=== PATIENT | female | born 1955 | race Caucasian/White ===

== ENCOUNTER 2018-03-11 11:56 | Outpatient (REF) | payer MEDICARE, MEDICAID, SELFPAY ==
[2018-03-11 21:18] LABS: Anion Gap 10.3 mmol/L (3-11); BUN 22 mg/dL (7-18); CO2 26.7 mmol/L (21.0-32.0); CREATININE 0.99 mg/dL (0.55-1.02); Calcium 9.2 mg/dL (8.5-10.1); Chloride 100 mmol/L (98-107); Estimated GFR 57.02 (mL/min/1.73m2); Glucose 161 mg/dL (70-100); Potassium 3.9 mmol/L (3.5-5.1); Sodium 137 mmol/L (136-145); TSH 1.63 uIU/mL (0.358-3.74)
== END 2018-03-11 12:16 ==
LOC: NCHCN 11:56
PROVIDERS: PCP Nurse Practitioner Family; Visit Provider Nurse Practitioner Family
DX: E11.9 Type 2 diabetes mellitus without complications (principal); I10 Essential (primary) hypertension; E06.3 Autoimmune thyroiditis
CPT/HCPCS: 80048; 84443

== ENCOUNTER 2018-06-17 13:47 | Outpatient (REF) | payer MEDICARE, MEDICAID, SELFPAY ==
[2018-06-17 21:32] LABS: HCT 38.1 % (36.0-46.0); Mean Corp. HGB Concentration 31.5 g/dL (32.0-36.0); Mean Corpuscular Hemoglobin 28.7 pg (27.0-33.0); Mean Corpuscular Volume 91.1 fL (80-95); Platelet Count 138 x1000/uL (130-400); RBC 4.18 m/cumm (4.00-5.20); RBC Distribution Width 15.4 % (11.7-14.6); White Blood Cell Count 8.46 k/cumm (4.4-10.8)
[2018-06-17 22:22] LABS: Magnesium 1.8 mg/dL (1.8-2.4)
[2018-06-17 23:17] LABS: Ferritin 60 ng/mL (8-388); Vitamin B12 329 pg/mL (193-986)
== END 2018-06-17 14:07 ==
LOC: NCHCN 13:47
PROVIDERS: PCP Nurse Practitioner Family; Visit Provider Nurse Practitioner Family
DX: G25.81 Restless legs syndrome (principal); R53.83 Other fatigue; R71.8 Other abnormality of red blood cells; Z79.899 Other long term (current) drug therapy
CPT/HCPCS: 85027; 82607; 82728; 83735

== ENCOUNTER 2018-09-21 23:04 | Outpatient (REF) | payer MEDICARE, MEDICAID, SELFPAY ==
[2018-09-21 23:02] LABS: COMMENT (LAB VIEW ONLY) 18.46 mg/dL; Microalb ug/mg Crea 23.3 ug/mg Cr
== END 2018-09-21 23:24 ==
LOC: NCHCN 23:04
PROVIDERS: PCP Nurse Practitioner Family; Visit Provider Nurse Practitioner Family
DX: G89.4 Chronic pain syndrome (principal)
CPT/HCPCS: 82043; 82570

== ENCOUNTER 2019-03-10 10:55 | Outpatient (REF) | payer MEDICARE, MEDICAID, SELFPAY ==
[2019-03-10 23:01] LABS: Anion Gap 13.6 mmol/L (3-11); BUN 25 mg/dL (7-18); CO2 26.4 mmol/L (21.0-32.0); Calcium 9.1 mg/dL (8.5-10.1); Chloride 100 mmol/L (98-107); Estimated GFR 45.52 (mL/min/1.73m2); Glucose 100 mg/dL (74-106); Sodium 140 mmol/L (136-145); Vitamin B12 322 pg/mL (193-986)
== END 2019-03-10 11:15 ==
LOC: NCHCN 10:55
PROVIDERS: PCP Nurse Practitioner Family; Visit Provider Nurse Practitioner Family
DX: E11.9 Type 2 diabetes mellitus without complications (principal); F32.9 Major depressive disorder, single episode, unspecified; I10 Essential (primary) hypertension; G89.4 Chronic pain syndrome; Z51.81 Encounter for therapeutic drug level monitoring
CPT/HCPCS: 80048; 82607; 84443

== ENCOUNTER 2019-08-17 14:42 | Outpatient (REF) | payer MEDICARE, MEDICAID, SELFPAY ==
[2019-08-17 21:26] LABS: BUN 19 mg/dL (7-18); CREATININE 1.37 mg/dL (0.55-1.02); Calcium 9.2 mg/dL (8.5-10.1); Chloride 101 mmol/L (98-107); Estimated GFR 39.07 (mL/min/1.73m2); Glucose 84 mg/dL (74-106); Potassium 4.7 mmol/L (3.5-5.1); Sodium 138 mmol/L (136-145)
== END 2019-08-17 15:02 ==
LOC: NCHCN 14:42
PROVIDERS: PCP Nurse Practitioner Family; Visit Provider Nurse Practitioner Community Health
DX: E11.621 Type 2 diabetes mellitus with foot ulcer (principal)
CPT/HCPCS: 80048

== ENCOUNTER 2019-08-25 12:01 | Outpatient (REF) | payer MEDICARE, MEDICAID, SELFPAY ==
[2019-08-25 20:55] LABS: Anion Gap 9.9 mmol/L (3-11); BUN 19 mg/dL (7-18); CO2 28.1 mmol/L (21.0-32.0); CREATININE 1.23 mg/dL (0.55-1.02); Calcium 9.1 mg/dL (8.5-10.1); Chloride 98 mmol/L (98-107); Estimated GFR 44.24 (mL/min/1.73m2); Glucose 84 mg/dL (74-106); Sodium 136 mmol/L (136-145)
== END 2019-08-25 12:21 ==
LOC: NCHCN 12:01
PROVIDERS: PCP Nurse Practitioner Family; Visit Provider Nurse Practitioner Community Health
DX: E11.9 Type 2 diabetes mellitus without complications (principal)
CPT/HCPCS: 80048

== ENCOUNTER 2020-04-17 17:02 | Outpatient (REF) | payer OTHER, MEDICAID, SELFPAY ==
[2020-04-17 21:13] LABS: Microalb ug/mg Crea 7.5 ug/mg Cr
[2020-04-17 21:15] LABS: BUN 34 mg/dL (7-18); CREATININE 1.2 mg/dL (0.55-1.02); Calcium 9.1 mg/dL (8.5-10.1); Chloride 101 mmol/L (98-107); Estimated GFR 45.37 (mL/min/1.73m2); Glucose 106 mg/dL (74-106); Potassium 3.9 mmol/L (3.5-5.1); Sodium 138 mmol/L (136-145); TSH 4.43 uIU/mL (0.36-3.74)
== END 2020-04-17 17:03 | disposition home or self-care (01) ==
LOC: NCHCN 17:02
PROVIDERS: PCP Nurse Practitioner Family; Visit Provider Nurse Practitioner Family
DX: E11.9 Type 2 diabetes mellitus without complications (principal); E06.3 Autoimmune thyroiditis; I10 Essential (primary) hypertension
CPT/HCPCS: 80048; 82043; 82570; 84443

== ENCOUNTER 2020-07-30 13:35 | Outpatient (REF) | payer MEDICARE, MEDICAID, SELFPAY ==
[2020-07-30 14:25] LABS: TSH 0.89 uIU/mL (0.36-3.74)
== END 2020-07-30 13:36 | disposition home or self-care (01) ==
LOC: NCHCN 13:35
PROVIDERS: PCP Nurse Practitioner Family; Visit Provider Nurse Practitioner Family
DX: E06.3 Autoimmune thyroiditis (principal)
CPT/HCPCS: 84443

== ENCOUNTER 2020-11-14 12:53 | Outpatient (REF) | payer MEDICARE, MEDICAID, SELFPAY ==
[2020-11-14 22:30] LABS: ALT 33 U/L (14-59); AST 16 U/L (15-37); Albumin 3.5 g/dL (3.4-5.0); Alkaline Phosphatase 86 U/L (46-116); Anion Gap 10.4 mmol/L (3-11); BUN 24 mg/dL (7-18); Bilirubin, Total 0.7 mg/dL (0.2-1.0); CO2 27.6 mmol/L (21.0-32.0); CREATININE 1.2 mg/dL (0.55-1.02); Chloride 103 mmol/L (98-107); Estimated GFR 45.37 (mL/min/1.73m2); Glucose 77 mg/dL (74-106); Potassium 4.3 mmol/L (3.5-5.1); Sodium 141 mmol/L (136-145); TSH 4.42 uIU/mL (0.36-3.74); Total Protein 7.6 g/dL (6.4-8.2)
== END 2020-11-14 12:54 | disposition home or self-care (01) ==
LOC: NCHCN 12:53
PROVIDERS: PCP Nurse Practitioner Family; Visit Provider Nurse Practitioner Community Health
DX: E06.3 Autoimmune thyroiditis (principal); E11.9 Type 2 diabetes mellitus without complications; E78.5 Hyperlipidemia, unspecified; E66.01 Morbid (severe) obesity due to excess calories
CPT/HCPCS: 80053; 84443

== ENCOUNTER 2021-02-12 16:50 | Outpatient (REF) | payer MEDICARE, MEDICAID, SELFPAY ==
[2021-02-12 23:01] LABS: Microalb ug/mg Crea 27.2 ug/mg Cr
[2021-02-12 23:28] LABS: Anion Gap 12.4 mmol/L (3-11); BUN 21 mg/dL (7-18); CO2 25.6 mmol/L (21.0-32.0); CREATININE 1.2 mg/dL (0.55-1.02); Calcium 9.3 mg/dL (8.5-10.1); Chloride 100 mmol/L (98-107); Estimated GFR 45.23 (mL/min/1.73m2); Glucose 113 mg/dL (74-106); Potassium 4.5 mmol/L (3.5-5.1); Sodium 138 mmol/L (136-145); TSH 1.59 uIU/mL (0.36-3.74); Vitamin B12 251 pg/mL (193-986)
== END 2021-02-12 16:51 | disposition home or self-care (01) ==
LOC: NCHCN 16:50
PROVIDERS: PCP Nurse Practitioner Family; Visit Provider Nurse Practitioner Family
DX: E11.9 Type 2 diabetes mellitus without complications (principal); I10 Essential (primary) hypertension; E06.3 Autoimmune thyroiditis; Z51.81 Encounter for therapeutic drug level monitoring
CPT/HCPCS: 80048; 82043; 82570; 82607; 84443

== ENCOUNTER 2022-03-18 11:21 | Outpatient (REF) | payer MEDICARE, MEDICAID, SELFPAY ==
[2022-03-18 14:38] LABS: HCT 34.8 % (36.0-46.0); MCH 26.5 pg (27.0-33.0); MCHC 31.6 % (32.0-36.0); MCV 84 fL (80-95); MPV 11.6 fL (8.0-11.0); Platelet Count 148 10^3/uL (130-400); RBC 4.15 10^6/uL (3.93-5.22); RDW 14.6 % (11.7-14.6); RDW-SD 44.7 fL; WBC 8.41 10^3/uL (4.4-10.8)
[2022-03-18 15:00] LABS: Hemoglobin A1C 6.4 % (<5.7)
[2022-03-18 15:36] LABS: BUN 34 mg/dL (7-18); CREATININE 1.1 mg/dL (0.55-1.02); Calcium 9.5 mg/dL (8.5-10.1); Chloride 100 mmol/L (98-107); Estimated GFR 55.76 (mL/min/1.73m2); Glucose 151 mg/dL (74-106); Potassium 3.8 mmol/L (3.5-5.1); Sodium 135 mmol/L (136-145); TSH 2.55 uIU/mL (0.36-3.74); Vitamin B12 1397 pg/mL (193-986)
== END 2022-03-18 11:22 | disposition home or self-care (01) ==
LOC: NCHCN 11:21
PROVIDERS: PCP Nurse Practitioner Family; Visit Provider Nurse Practitioner Family
DX: E11.9 Type 2 diabetes mellitus without complications (principal); I10 Essential (primary) hypertension; E03.9 Hypothyroidism, unspecified; E53.8 Deficiency of other specified B group vitamins
CPT/HCPCS: 80048; 85027; 82607; 83036; 84443

== ENCOUNTER 2022-11-11 11:49 | Outpatient (REF) | payer MEDICARE, MEDICAID, SELFPAY ==
[2022-11-11 16:30] LABS: Abs Immature Grans 0.04 10^3/uL (0.0-0.06); Absolute Basophil Count 0.05 10^3/uL (0.0-0.2); Absolute Eosinophil Count 0.26 10^3/uL (0.0-0.7); Absolute Lymphocyte Count 1.58 10^3/uL (1.2-3.4); Absolute Monocyte Count 0.74 10^3/uL (0.1-0.8); Absolute Neutrophil Count 7.01 10^3/uL (1.2-6.7); Basophils % 0.5; Eosinophils % 2.7; HCT 34.4 % (36.0-46.0); HGB 10.7 g/dL (11.2-15.7); Immature Grans % 0.4; Lymphocytes % 16.3; MCH 26.4 pg (27.0-33.0); MCHC 31.1 % (32.0-36.0); MCV 85 fL (80-95); MPV 11.1 fL (8.0-11.0); Monocytes % 7.6; Neutrophils % 72.5; Platelet Count 215 10^3/uL (130-400); RBC 4.06 10^6/uL (3.93-5.22); RDW 14.6 % (11.7-14.6); WBC 9.68 10^3/uL (4.4-10.8)
[2022-11-11 17:04] LABS: Iron 42 ug/dL (50-170); Total Iron Binding Capacity 374 ug/dL (250-450); Transferrin Sat 11 % (15-50)
[2022-11-11 17:33] LABS: ALT 50 U/L (14-59); AST 33 U/L (15-37); Albumin 3.3 g/dL (3.4-5.0); Alkaline Phosphatase 106 U/L (46-116); Anion Gap 10.3 mmol/L (3-11); BUN 19 mg/dL (7-18); Bilirubin, Total 0.5 mg/dL (0.2-1.0); CO2 26.7 mmol/L (21.0-32.0); CREATININE 1.1 mg/dL (0.55-1.02); Calcium 9.2 mg/dL (8.5-10.1); Chloride 103 mmol/L (98-107); Estimated GFR 55.76 (mL/min/1.73m2); Ferritin 78 ng/mL (8-252); Folate 9.6 ng/mL (8.6-20.0); Glucose 177 mg/dL (74-106); Potassium 4.3 mmol/L (3.5-5.1); Sodium 140 mmol/L (136-145); TSH (W/Ref FT4) 1.29 uIU/mL (0.36-3.74); Total Protein 7.9 g/dL (6.4-8.2); Vitamin B12 1787 pg/mL (193-986)
== END 2022-11-11 11:50 | disposition home or self-care (01) ==
LOC: NCHCN 11:49
PROVIDERS: PCP Nurse Practitioner Family; Visit Provider Nurse Practitioner Family
DX: E03.9 Hypothyroidism, unspecified (principal); E11.9 Type 2 diabetes mellitus without complications; D64.9 Anemia, unspecified; R74.8 Abnormal levels of other serum enzymes; Z86.39 Personal history of other endocrine, nutritional and metabolic disease
CPT/HCPCS: 80053; 82607; 82728; 82746; 83540; 83550; 84443; 85025

== ENCOUNTER 2023-07-13 19:36 | Outpatient (REF) | payer MEDICARE, MEDICAID, SELFPAY ==
[2023-07-13 21:39] LABS: HCT 37.6 % (36.0-46.0); HGB 11.8 g/dL (11.2-15.7); MCH 26.9 pg (27.0-33.0); MCHC 31.4 % (32.0-36.0); MCV 86 fL (80-95); Platelet Count 274 10^3/uL (130-400); RBC 4.38 10^6/uL (3.93-5.22); RDW 14.4 % (11.7-14.6); RDW-SD 45.4 fL; WBC 9.88 10^3/uL (4.4-10.8)
[2023-07-13 21:57] LABS: COMMENT (LAB VIEW ONLY) 78.37 mg/dL; Microalb ug/mg Crea 9.1 ug/mg Cr
[2023-07-13 22:00] LABS: Iron 52 ug/dL (50-170); Total Iron Binding Capacity 397 ug/dL (250-450); Transferrin Sat 13 % (15-50)
[2023-07-13 22:14] LABS: ALT 40 U/L (14-59); AST 31 U/L (15-37); Albumin 3.5 g/dL (3.4-5.0); Alkaline Phosphatase 151 U/L (46-116); Anion Gap 10.1 mmol/L (3-11); BUN 29 mg/dL (7-18); Bilirubin, Total 0.7 mg/dL (0.2-1.0); CO2 28.9 mmol/L (21.0-32.0); CREATININE 1.4 mg/dL (0.55-1.02); Calcium 10.2 mg/dL (8.5-10.1); Calculated LDL 42 mg/dL (<100); Chloride 99 mmol/L (98-107); Cholesterol 126 mg/dL (<200); Estimated GFR 41.49 (mL/min/1.73m2); Glucose 107 mg/dL (74-106); HDL Cholesterol 53 mg/dL (40-60); Potassium 4.7 mmol/L (3.5-5.1); Sodium 138 mmol/L (136-145); TSH 1.62 uIU/Ml (0.36-3.74); Total Protein 8.3 g/dL (6.4-8.2); Triglyceride 157 mg/dL (<150)
[2023-07-13 22:15] LABS: Vitamin B12 > 2000 pg/mL (193-986)
[2023-07-13 22:19] LABS: Vitamin D 25 Total 9.8 ng/mL (30-100)
== END 2023-07-13 19:37 | disposition home or self-care (01) ==
LOC: NCHCN 19:36
PROVIDERS: PCP Nurse Practitioner Family; Visit Provider Nurse Practitioner Family
DX: E11.9 Type 2 diabetes mellitus without complications (principal); I10 Essential (primary) hypertension; N18.31 Chronic kidney disease, stage 3a; Z98.84 Bariatric surgery status; E78.5 Hyperlipidemia, unspecified
CPT/HCPCS: 80053; 80061; 82306; 85027; 82043; 82570; 82607; 83540; 83550; 84443